=== PATIENT | female | born 1960 | race Caucasian/White ===

== ENCOUNTER 2017-10-24 07:39 | Observation (INO) | payer MEDICARE ==
[2017-10-24 08:23] LABS: Hemoglobin 15.2 g/dL (12.0-16.0); Mean Corpuscular HGB CONC 32.4 g/dL (32.0-36.0); Mean Corpuscular Hemoglobin 29.4 pg (27.0-31.0); Mean Corpuscular Volume 90.5 fl (81.0-99.0); RBC Distribution Width 12.7 % (11.5-14.5); Red Blood Cell (RBC) Count 5.16 mill/uL (4.20-5.40); White Blood Cell (WBC) Count 5.4 thou/uL (4.8-10.8)
[2017-10-24 08:31] LABS: ALT (SGPT) 17 U/L (8-55); AST (SGOT) 27 U/L (5-34); Albumin 4.5 g/dL (3.5-5.0); Alkaline Phosphatase 101 U/L (40-150); Anion Gap 17 mmol/L (10-20); BUN (Urea Nitrogen) 16 mg/dL (9.8-20.1); Bilirubin, Total 0.6 mg/dL (0.2-1.2); CK (CPK) 78 U/L (29-168); Calc. Creatinine Clearance 0 mL/min (70-130); Calcium 10.2 mg/dL (7.8-10.44); Carbon Dioxide 25 mmol/L (22-29); Chloride 98 mmol/L (98-107); Estimated GFR-MDRD 36; Globulin 3.5 g/dL (2.4-3.5); Glucose 117 mg/dL (70-105); Potassium 4.6 mmol/L (3.5-5.1); Sodium 135 mmol/L (136-145)
[2017-10-24 08:34] LABS: CKMB 0.8 ng/mL (0-6.6); Troponin I 0.031 ng/mL (< 0.028)
--- NOTE | 2017-10-24 08:34 | RAD ---
PA AND LATERAL VIEWS OF CHEST: HISTORY: Cough. FINDINGS: Comparison is made with the exam of 01/14/17. A tracheostomy tube is present. There is a subclavian Port-A-Cath with tip in the projection of the SVC. The heart size is normal. The lungs are expanded without focal areas of consolidation, pneumot horax, or pleural effusions. IMPRESSION: No acute process. POS: DEVIH
[2017-10-24 08:38] LABS: #Lymphocytes 0.5 thou/uL (1.20-3.40); #Monocytes 0.7 thou/uL (0.11-0.59); #Neutrophils 4.2 thou/uL (1.40-6.50); %Eosinophils 0.1 % (0.0-10.0); %Lymphocytes 8.8 % (21.0-51.0); %Neutrophils 78.2 % (42.0-75.0); Mean Platelet Volume 9.1 fL (7.4-10.4); PLT Morphology Comment Appears Decreased; Platelet Count 113 thou/uL (130-400)
[2017-10-24] MEDS ORDERED: Nitroglycerin 2% Ointment 1 INCH/1 GM Packet ONE ×2 (08:54→12:40)
[2017-10-24] MEDS ORDERED: Oseltamivir 75 MG CAP PO SCH (09:00)
[2017-10-24] MEDS ORDERED: Ondansetron ODT 4 MG TAB PO PRN (09:37)
[2017-10-24] MEDS ORDERED: Ondansetron HCl/PF 4 MG/2 ML Vial IVP PRN (09:37)
[2017-10-24] MEDS ORDERED: ALPRAZolam 0.25 MG TAB PER TUBE PRN (09:41)
[2017-10-24 11:30] LABS: Bilirubin Negative (Negative); Blood, Urine Trace (Negative); Clarity CLEAR (Clear); Glucose, Urine (Dipstick) Negative (Negative); Leukocyte Negative (Negative); Nitrite Negative (Negative); Protein, Urine (Dipstick) Trace mg/dL (Neg-Trace); Specific Gravity, Urine 1.016 (1.002-1.036); pH, Urine 6.5 (5.0-9.0)
[2017-10-24 11:32] LABS: Bacteria/HPF None Seen HPF (None Seen); Hyaline Casts/LPF 0-3 HYALINE CAST LPF (0-3 Hyaline); Squamous Epithelial 0-3 HPF (0-3); WBC/HPF 0-3 HPF (0-3)
[2017-10-24 12:05] LABS: Troponin I 0.033 ng/mL (< 0.028)
--- NOTE | 2017-10-24 12:16 | HP ---
CHIEF COMPLAINT: Generalized body pain and coughing. HISTORY OF PRESENT ILLNESS: This is a 57-year-old female patient who presented here with 2-3 days hi story of hacking and coughing with generalized body pain. Patient's had similar complaints a nd came to the ER yesterday and was discharged afterwards. Patient now presented because of deterior ating clinical status. On presentation to the ER, the patient tested positive to flu and with slight elevation in the cardiac enzyme. As a result of these findings, the decision has now been taken to admit this patient for further management. PAST MEDICAL HISTORY: Significant for history of squamous cell carcinoma status post chemotherapy, o rthostatic hypotension, labile hypertension, tobacco abuse, dyslipidemia, history of cervical carcino ma. MEDICATIONS: Reviewed as documented on [employer]. ALLERGIES: MORPHINE. FAMILY HISTORY: Significant for brain cancer. SOCIAL HISTORY: The patient is , living with the . Significant for tobacco use. Jose es alcohol or illicit drug use. REVIEW OF SYSTEMS: As documented in the body of the history. All the other systems were reviewed an d were found not to be significantly related to the presenting illness. LABORATORY INVESTIGATION: Showed a platelet count of 113,000. Chemistry showed a sodium 135, creati nine 1.48, troponin of 0.31. PHYSICAL EXAMINATION: GENERAL: The patient was found to be somewhat dry, looks a little bit older than stated age, hemodyn amically stable, afebrile. VITAL SIGNS: Significant for blood pressure 124/76 with a pulse of 111, temperature 98.5, respirator y rate 22, O2 sat 94% on room air. HEENT: Unremarkable. CARDIOVASCULAR SYSTEM: First and second heart sounds were heard. RESPIRATORY SYSTEM: Clear to auscultation. DIGESTIVE SYSTEM: Revealed a benign abdomen. EXTREMITIES: No peripheral edema. SKIN: Showed a very dry skin. IMPRESSION: 1. Influenza type A positive/fluid. 2. Tobacco abuse. 3. Elevated cardiac enzymes/troponin, query cause, possibly demand ischemia. 4. Respiratory distress in the context of the problems listed above. PLAN: 1. The patient has been admitted to rule out acute coronary syndrome. 2. Tamiflu initiated to treat the flu. 3. Gentle rehydration. 4. Further management to be dependent on the clinical course.
[2017-10-24] MEDS: Dextrose 5 % And 0.9 % NaCl 1,000 ML IV SCH (14:47)
[2017-10-24] MEDS: Nicotine 21 MG PATCH TD SCH (14:48)
[2017-10-24 15:25] VITALS: BMI 17.8
[2017-10-24] MEDS: Acetaminophen 325 MG TAB PO PRN (16:14)
[2017-10-24] MEDS: Metoprolol Tartrate 25 MG TAB PO SCH (20:42)
[2017-10-24] MEDS: Oseltamivir 6 MG/ML ORAL SUSP PO SCH (20:42)
[2017-10-24] MEDS ORDERED: Zolpidem Tartrate 5 MG TAB PO SCH (20:45)
[2017-10-24] MEDS ORDERED: Atorvastatin Calcium 40 MG TAB PO SCH (21:00)
[2017-10-24] MEDS ORDERED: Montelukast Sodium 10 mg Tablet PO SCH (21:00)
[2017-10-24] MEDS ORDERED: Famotidine 20 MG TAB PO SCH (21:00)
[2017-10-25] MEDS: Dextrose 5 % And 0.9 % NaCl 1,000 ML IV SCH (00:08)
[2017-10-25] MEDS: Acetaminophen 325 MG TAB PO PRN (00:09)
[2017-10-25 05:15] LABS: #Lymphocytes 0.9 thou/uL (1.20-3.40); #Monocytes 0.8 thou/uL (0.11-0.59); #Neutrophils 3.9 thou/uL (1.40-6.50); %Basophils 0.3 % (0.0-1.0); %Eosinophils 0.1 % (0.0-10.0); %Lymphocytes 16.2 % (21.0-51.0); %Monocytes 14.1 % (0.0-10.0); %Neutrophils 69.3 % (42.0-75.0); Hemoglobin 12.4 g/dL (12.0-16.0); Mean Corpuscular HGB CONC 33.1 g/dL (32.0-36.0); Mean Corpuscular Volume 90.6 fl (81.0-99.0); Platelet Count 89 thou/uL (130-400); RBC Distribution Width 12.8 % (11.5-14.5); Red Blood Cell (RBC) Count 4.15 mill/uL (4.20-5.40); White Blood Cell (WBC) Count 5.7 thou/uL (4.8-10.8)
[2017-10-25 05:24] LABS: Anion Gap 10 mmol/L (10-20); BUN (Urea Nitrogen) 20 mg/dL (9.8-20.1); Calc. Creatinine Clearance 45 mL/min (70-130); Calcium 8.8 mg/dL (7.8-10.44); Carbon Dioxide 24 mmol/L (22-29); Chloride 101 mmol/L (98-107); Estimated GFR-MDRD 55; Glucose 127 mg/dL (70-105); Potassium 3.8 mmol/L (3.5-5.1); Sodium 131 mmol/L (136-145)
--- NOTE | 2017-10-25 07:26 | PDOC.PN ---
- Subjective Encounter Start Date: 10/25/17 Encounter Start Time: 08:00 Subjective: Cough much improved. No SOB this AM. Ambulating well. - Objective MAR Reviewed: Yes Vital Signs & Weight: Vital Signs (12 hours) Temp Pulse Resp BP Pulse Ox 10/25/17 04:11 96 10/25/17 00:04 103.0 F H 86 20 165/78 H 91 L 10/24/17 23:25 97 10/24/17 19:36 98 10/24/17 19:32 95 16 98 Weight Weight 107 lb I&O: 10/24/17 10/25/17 10/26/17 06:59 06:59 06:59 Intake Total 2200 Output Total 650 Balance 1550 Result Diagrams: 10/25/17 04:50 10/25/17 04:50 Phys Exam - Physical Examination Constitutional: NAD HEENT: moist MMs Trach in place, capped Respiratory: no wheezing, no rales, no rhonchi, clear to auscultation bilateral Cardiovascular: RRR Gastrointestinal: soft, positive bowel sounds PEG tube in place Musculoskeletal: no edema Neurological: non-focal, moves all 4 limbs Psychiatric: normal affect, A&O x 3 Dx/Plan (1) Influenza A Code(s): J10.1 - FLU DUE TO OTH IDENT INFLUENZA VIRUS W OTH RESP MANIFEST Status: Acute Comment: Patient still fevering to 103 overnight but feeling much better this morning. (2) Elevated troponin Code(s): R74.8 - ABNORMAL LEVELS OF OTHER SERUM ENZYMES Status: Acute Comment: Likely demand ischemia, known CAD and old NH, but neg stress in 12/2016 (3) Vocal cord dysfunction Code(s): J38.3 - OTHER DISEASES OF VOCAL CORDS Status: Chronic Comment: s/p tracheostomy and PEG last admission (4) CAD (coronary artery disease) Code(s): I25.10 - ATHSCL HEART DISEASE OF [place] CORONARY ARTERY W/O ANG PCTRS Status: Chronic Comment: 2 previous stents (5) Hypertension, uncontrolled Code(s): I10 - ESSENTIAL (PRIMARY) HYPERTENSION Status: Chronic (6) Orthostasis Code(s): I95.1 - ORTHOSTATIC HYPOTENSION Status: Chronic Comment: Significant persistent orthostatic drop with sitting or standing. - Plan cont current plan of care, continue antibiotics, DVT proph w/lovenox Patient feeling much better this AM. If continues doing well today and -: able to ambulate well without symptoms can d/c in the afternoon. * . - Discharge Day Encounter end time: 08:30
[2017-10-25] MEDS: Metoprolol Tartrate 25 MG TAB PO SCH (08:43)
[2017-10-25] MEDS: Oseltamivir 6 MG/ML ORAL SUSP PO SCH (08:58)
[2017-10-25] MEDS ORDERED: Amlodipine 5 MG TAB PO SCH (09:00)
[2017-10-25] MEDS ORDERED: Aspirin 325 MG TAB PO SCH (09:00)
[2017-10-25] MEDS ORDERED: Enoxaparin Sodium 40 MG/0.4 ML SYRINGE SC SCH (09:00)
[2017-10-25 12:34] VITALS: BP 101/59; TEMP 98
[2017-10-25] MEDS: Nicotine 21 MG PATCH TD SCH (12:34)
--- NOTE | 2017-10-25 22:22 | DIS ---
PRIMARY CARE PHYSICIAN: Bhupinder Taylor MD ADMISSION DIAGNOSES: 1. Influenza type A. 2. Elevated cardiac enzymes, troponin, possible demand ischemia. 3. Respiratory distress in the context of influenza. 4. Tobacco abuse. DISCHARGE DIAGNOSES: 1. Influenza A. 2. Indeterminate troponin, likely demand ischemia. 3. Coronary artery disease. 4. Hypertension. 5. Vocal cord dysfunction, status post tracheostomy and PEG on last admission. 6. Chronic orthostasis. PROCEDURES: None. CONSULTATIONS: None. SUMMARY OF HOSPITAL COURSE: This is a 57-year-old white female who was in the hospital earlier in with vocal cord dysfunction, had a trach and a PEG tube placed, also had some recurrent orthos tasis, high blood pressure when she is lying down, orthostasis whenever she stands up. She has been doing well at home until about 2-3 days before admission when she developed hacking and coughing and generalized body pain, she came to the ER. There was diagnosed with influenza A, but also noted to h ave indeterminate troponins. Given her significant medical problems, she was put in observation in [facility]. The patient did well overnight. She was started on Tamiflu, has fever controlled and w as given fluids. She had stable vital signs at discharge due to fever overnight to 103 that has been resolved and was down the rest of the day. She had decrease in her cough and was feeling well and a mbulating well with good strength and is being discharged home. Her troponins were mildly indetermin ate. This is likely due to her known coronary artery disease; however, she had a stress test done [facility] the last year which showed an old ID, but no inducible ischemia. DISCHARGE MANAGEMENT: Discharged to home. ACTIVITY: As tolerated. DIET: Healthy heart diet. FOLLOWUP: Follow up with primary care physician in 1-2 weeks. MEDICATIONS: The patient is to resume all her home medications plus Tamiflu 75 mg twice a day for 7 more tablets for a total course of 10 tablets.
== END 2017-10-25 14:51 | disposition home or self-care (01) ==
LOC: ERS 07:39 → 2SW 13:17
PROVIDERS: ADMIT Internal Medicine Nephrology; ATTEND Internal Medicine Nephrology
DX: J10.1 Influenza due to other identified influenza virus with other respiratory manifestations (principal); I25.10 Atherosclerotic heart disease of native coronary artery without angina pectoris; R74.8 Abnormal levels of other serum enzymes; I10 Essential (primary) hypertension; I95.1 Orthostatic hypotension; F17.200 Nicotine dependence, unspecified, uncomplicated; E78.5 Hyperlipidemia, unspecified; Z93.0 Tracheostomy status; Z93.1 Gastrostomy status; Z79.02 Long term (current) use of antithrombotics/antiplatelets; Z79.899 Other long term (current) drug therapy; Z88.5 Allergy status to narcotic agent; Z85.828 Personal history of other malignant neoplasm of skin; Z92.21 Personal history of antineoplastic chemotherapy; Z85.41 Personal history of malignant neoplasm of cervix uteri
CPT/HCPCS: 71020; 80048; 80053; 82550; 82553; 84484 ×2; 85025 ×2; 87804 ×2; 93005; 94640 ×3; 94760 ×2; 96360; 96361 ×2; 99285; G0378; 36415; 81003; 81015; J1650; J7620

== ENCOUNTER 2018-04-28 01:11 | Emergency (ER) | payer MEDICARE ==
--- NOTE | 2018-04-28 08:33 | RAD ---
LEFT RIBS 3 VIEWS CHEST 1 VIEW: Date: 04/28/18 HISTORY: Left chest wall pain. COMPARISON: 10/24/17. FINDINGS: Cardiac silhouette and pulmonary vasculature are unremarkable. Mediastinum is midline with aortic donaldo cification. Right subclavian MediPort and tracheostomy appliance are unchanged in position. Lungs rem ain hyperinflated. No lobar consolidation. No displaced rib fracture or pneumothorax visible. IMPRESSION: 1. COPD. 2. Atherosclerosis. 3. Stable radiographic appearance of the chest. POS: DEVI
== END 2018-04-28 02:15 | disposition home or self-care (01) ==
LOC: ERS 01:11
DX: R07.89 Other chest pain (principal); I10 Essential (primary) hypertension; J44.9 Chronic obstructive pulmonary disease, unspecified; F17.210 Nicotine dependence, cigarettes, uncomplicated; Z79.899 Other long term (current) drug therapy; Z87.891 Personal history of nicotine dependence

== ENCOUNTER 2018-05-31 20:04 | Emergency (ER) | payer MEDICARE ==
[2018-05-31 20:41] LABS: #Basophils 0.1 thou/uL (0.0-0.2); #Eosinphils 0.1 thou/uL (0.0-0.7); #Lymphocytes 1.7 thou/uL (1.20-3.40); #Neutrophils 4.8 thou/uL (1.40-6.50); %Basophils 0.8 % (0.0-1.0); %Eosinophils 1.4 % (0.0-10.0); %Lymphocytes 22.1 % (21.0-51.0); %Monocytes 12.6 % (0.0-10.0); Hemoglobin 14.2 g/dL (12.0-16.0); Mean Corpuscular HGB CONC 34.4 g/dL (32.0-36.0); Mean Corpuscular Hemoglobin 30.9 pg (27.0-31.0); Mean Corpuscular Volume 89.8 fL (78.0-98.0); Mean Platelet Volume 7.8 fL (7.4-10.4); Platelet Count 191 thou/uL (130-400); RBC Distribution Width 13.2 % (11.5-14.5); Red Blood Cell (RBC) Count 4.61 mill/uL (4.20-5.40); White Blood Cell (WBC) Count 7.6 thou/uL (4.8-10.8)
[2018-05-31 21:07] LABS: CKMB 1.6 ng/mL (0-6.6); Troponin I Less than 0.010 ng/mL (< 0.028)
[2018-05-31 21:10] LABS: ALT (SGPT) 16 U/L (8-55); AST (SGOT) 31 U/L (5-34); Albumin 4.2 g/dL (3.5-5.0); Alkaline Phosphatase 112 U/L (40-150); Anion Gap 16 mmol/L (10-20); BUN (Urea Nitrogen) 21 mg/dL (9.8-20.1); Bilirubin, Total 0.6 mg/dL (0.2-1.2); Calc. Creatinine Clearance 0 mL/min (70-130); Calcium 9.6 mg/dL (7.8-10.44); Carbon Dioxide 22 mmol/L (22-29); Chloride 107 mmol/L (98-107); Estimated GFR-MDRD 52; Globulin 4.1 g/dL (2.4-3.5); Glucose 98 mg/dL (70-105); Potassium 5.1 mmol/L (3.5-5.1); Protein, Total 8.3 g/dL (6.0-8.3); Sodium 140 mmol/L (136-145)
--- NOTE | 2018-05-31 21:54 | RAD ---
CHEST ONE VIEW: 05/31/18 HISTORY: Dyspnea. COMPARISON: 01/14/17. FINDINGS: The cardiac silhouette and pulmonary vasculature are unremarkable. Lungs are well inflated. Tracheost eugene appliance and right subclavian Mediport are in place. Mediastinum is midline with aortic calcific ation. No lobar consolidation or evidence of pneumothorax. IMPRESSION: No active cardiopulmonary abnormalities are demonstrated. POS: BST
[2018-05-31] MEDS ORDERED: cloNIDine 0.1 MG TAB ONE (22:48)
[2018-05-31] MEDS ORDERED: Diazepam 5 MG TAB ONE (23:59)
[2018-06-01] MEDS ORDERED: predniSONE 20 MG TAB ONE ×2 (00:01)
--- NOTE | 2018-06-11 12:10 | EKG ---
Test Reason : Blood Pressure : / mmHG Vent. Rate : 077 BPM Atrial Rate : 077 BPM P-R Int : 134 ms QRS Dur : 090 ms QT Int : 386 ms P-R-T Axes : 080 047 083 degrees QTc Int : 436 ms Normal sinus rhythm Possible Left atrial enlargement Nonspecific T wave abnormality Abnormal ECG Confirmed by CHARLIE RAZA ([id number]), multimedia editor MARICEL FUNES ([id number]) on 06/11/2018 12:10:12 PM Referred By: Confirmed By:CHARLIE RAZA
== END 2018-06-01 00:36 | disposition home or self-care (01) ==
LOC: ERS 20:04
DX: Z43.0 Encounter for attention to tracheostomy (principal); F41.9 Anxiety disorder, unspecified; I10 Essential (primary) hypertension; I25.2 Old myocardial infarction; F17.210 Nicotine dependence, cigarettes, uncomplicated
CPT/HCPCS: 71045; 80053; 82553; 83880; 84484; 85025; 93005; J7506

== ENCOUNTER 2018-12-14 09:47 | Outpatient (CLI) | payer MEDICARE, MEDICAID | END 2018-12-14 09:48 | disposition home or self-care (01) | PROVIDERS: ATTEND Internal Medicine | DX: R13.10 Dysphagia, unspecified (principal); R63.3 Feeding difficulties | CPT/HCPCS: 74230 ==

== ENCOUNTER 2019-01-04 12:25 | Outpatient (CLI) | payer MEDICARE, MEDICAID ==
--- NOTE | 2019-01-04 13:16 | RAD ---
RIGHT THUMB 3 VIEWS: HISTORY: Osteoarthritis of right thumb, right thumb pain. FINDINGS: Mild degenerative changes are present. No fracture, dislocation, or bony destruction is identified. POS: [facility]
== END 2019-01-04 12:26 | disposition home or self-care (01) ==
LOC: BICRAD 12:25
PROVIDERS: ATTEND Internal Medicine
DX: M19.041 Primary osteoarthritis, right hand (principal)

== ENCOUNTER 2019-06-06 09:18 | Outpatient (CLI) | payer MEDICARE, MEDICAID ==
--- NOTE | 2019-06-06 09:31 | RAD ---
EXAM: Chest 2 views: HISTORY: Uncontrolled hypertension COMPARISON: 05/31/2019 FINDINGS: There is a normal-sized cardiomediastinal silhouette. The Mediport is unchanged in position. The tra cheostomy is unchanged in position. There is no evidence of consolidation, mass, or pleural effusion. The bones are unremarkable. IMPRESSION: No evidence of acute cardiopulmonary disease
== END 2019-06-06 09:19 | disposition home or self-care (01) ==
LOC: BICRAD 09:18
PROVIDERS: ATTEND Internal Medicine
DX: I10 Essential (primary) hypertension (principal)
CPT/HCPCS: 71046

== ENCOUNTER 2019-06-27 12:34 | Emergency (ER) | payer MEDICARE, MEDICAID | END 2019-06-27 13:35 | disposition home or self-care (01) | LOC: ERS 12:34 | DX: H65.192 Other acute nonsuppurative otitis media, left ear (principal); H61.22 Impacted cerumen, left ear; I10 Essential (primary) hypertension; I25.2 Old myocardial infarction; J44.9 Chronic obstructive pulmonary disease, unspecified; K21.9 Gastro-esophageal reflux disease without esophagitis; F41.9 Anxiety disorder, unspecified; Z87.891 Personal history of nicotine dependence; Z79.899 Other long term (current) drug therapy | CPT/HCPCS: 69210 ==

== ENCOUNTER 2019-10-13 13:21 | Day surgery (SDC) | payer MEDICARE, MEDICAID ==
[~2019-10-13 13:21] MED LIST: PROPOFOL 200 MG/20 ML VIAL ONE
--- NOTE | 2019-10-14 00:42 | OP ---
DATE OF PROCEDURE: 10/13/2019 PREOPERATIVE DIAGNOSES: 1. Dysfunctional PEG tube with clog. 2. Inability for the PEG tube to be removed in the office secondary to patient's pain. ANESTHESIA: TIVA. POSTPROCEDURE DIAGNOSES: 1. Normal EGD. 2. PEG tube removed by pulling it through the abdominal wall and stomach wall with no complication. New 18-British PEG with 20 mL balloon placed at the original PEG tube tract with endoscopic guidance to confirm placement. DESCRIPTION OF PROCEDURE: The patient was informed of the risks, benefits, and possible complications of endoscopy including perforation, reaction to medication, aspiration. Informed consent was obtained. The patient was brought to the endoscopy suite, where she was sedated in gradual fashion. Once she was comfortable, a bite-block was placed inside the orifice. The endoscope was advanced to the esophagus, stomach, and second and third portion of duodenum and slowly removed. There was good visualization of the mucosa. The old PEG tube was identified in the stomach and appeared to be in proper location. It was then grasped at the anterior abdominal wall and sharply retracted through the abdominal wall. There was no evidence of trauma or bleeding. A new PEG tube was placed through the old tract under endoscopic guidance and it was inflated. The scope was then removed. The patient tolerated the procedure well with no complications. Job ID: [id number]
== END 2019-10-13 18:45 | disposition home or self-care (01) ==
LOC: SDC 13:21
PROVIDERS: ATTEND Internal Medicine Gastroenterology
PROC: 0DH63UZ Insertion of Feeding Device into Stomach, Percutaneous Approach (ICD-10-PCS; principal; 2019-10-13)
DX: K94.23 Gastrostomy malfunction (principal); R13.10 Dysphagia, unspecified; E78.00 Pure hypercholesterolemia, unspecified; Z79.02 Long term (current) use of antithrombotics/antiplatelets; Z79.899 Other long term (current) drug therapy; Z88.5 Allergy status to narcotic agent
CPT/HCPCS: J2704

== ENCOUNTER 2020-03-25 08:53 | Outpatient (CLI) | payer MEDICARE, MEDICAID, OTHER ==
[2020-03-25 15:42] LABS: Hemoglobin 14.5 g/dL (12.0-16.0); Mean Corpuscular HGB CONC 32.7 g/dL (32.0-36.0); Mean Corpuscular Hemoglobin 30.5 pg (27.0-31.0); Mean Corpuscular Volume 93.2 fL (78.0-98.0); Mean Platelet Volume 7.7 fL (7.4-10.4); Platelet Count 215 thou/uL (130-400); RBC Distribution Width 12.6 % (11.5-14.5); Red Blood Cell (RBC) Count 4.75 mill/uL (4.20-5.40); White Blood Cell (WBC) Count 5.3 thou/uL (4.8-10.8)
[2020-03-25 16:20] LABS: Anion Gap 12 mmol/L (10-20); BUN (Urea Nitrogen) 9 mg/dL (9.8-20.1); Calc. Creatinine Clearance 0 mL/min (70-130); Calcium 9.5 mg/dL (7.8-10.44); Carbon Dioxide 27 mmol/L (23-31); Chloride 100 mmol/L (98-107); Estimated GFR-MDRD 55; Glucose 86 mg/dL (80-115); Potassium 4.2 mmol/L (3.5-5.1); Sodium 135 mmol/L (136-145)
[2020-03-26 11:10] LABS: SARS-CoV-2 MS2 Positive; SARS-CoV-2 N Gene Negative; SARS-CoV-2 S Gene Negative; SARS-CoV-2 orf1ab Negative
== END 2020-03-25 08:54 | disposition home or self-care (01) ==
LOC: LABBT 08:53
PROVIDERS: ATTEND Otolaryngology Plastic Surgery within the Head & Neck
DX: Z01.818 Encounter for other preprocedural examination (principal); J38.00 Paralysis of vocal cords and larynx, unspecified; L98.9 Disorder of the skin and subcutaneous tissue, unspecified; C44.91 Basal cell carcinoma of skin, unspecified; Z85.21 Personal history of malignant neoplasm of larynx; Z93.0 Tracheostomy status; Z72.0 Tobacco use; Z11.59 Encounter for screening for other viral diseases
CPT/HCPCS: 80048; 85027; 93005; U0003; 87635; 93010

== ENCOUNTER 2020-03-27 11:24 | Day surgery (SDC) | payer MEDICARE, MEDICAID ==
[2020-03-25 14:52] VITALS: BMI 19.1
[~2020-03-27 11:24] MED LIST changes: +Lidocaine 1% PF 5 ML VIAL ONE; -PROPOFOL 200 MG/20 ML VIAL ONE
[2020-03-27] MEDS ORDERED: Lidocaine 1% w/Epinephrine 1:100K 20 ML VIAL ONE (14:31)
[2020-03-27] MEDS ORDERED: Bacitracin Zinc Ointment 30 gm TUBE ONE (14:31)
[2020-03-27] MEDS ORDERED: Fentanyl 100 MCG/2 ML VIAL ONE (14:38)
[2020-03-27] MEDS ORDERED: Propofol 500 MG/50 ML VIAL ONE (14:38)
--- NOTE | 2020-03-28 09:53 | OP ---
DATE OF PROCEDURE: 03/27/2020 PREOPERATIVE DIAGNOSIS: Left face basal cell carcinoma 3.0 sq cm. POSTOPERATIVE DIAGNOSIS: Left face basal cell carcinoma 3.0 sq cm. PROCEDURES: Wide local excision of basal cell carcinoma, left cheek and nose 3 sq cm with advancement flap 6 sq cm. ESTIMATED BLOOD LOSS: Less than 10 mL. COMPLICATIONS: None. ANESTHESIA: TIVA. DESCRIPTION OF PROCEDURE: The patient was taken to the operating room, placed supine on the table. IV sedation and anesthesia were obtained by the anesthesia staff. The face was then prepped and draped in standard surgical fashion. The lesion which was just adjacent to the left nasal bridge and extending onto the left cheek and nasal-alar crease was excised using a 15 blade keeping a 5 to 8 mm margin. Frozen section analysis confirmed clear margins except for a positive lateral margin. Therefore, another 5 mm sample was taken from the lateral edge of the resection area and was noted to be clear of any residual tissue. Following this, the skin was undermined overlying the cheek and area and nasal-alar crease. The flap was then advanced to cover the defect involving the left nasal bridge and left cheek area. The flap was secured using Monocryl stitches for the subcuticular layer and chromic gut stitches for the skin. The patient tolerated the procedure well. Job ID: [id number]
== END 2020-03-27 17:15 | disposition home or self-care (01) ==
LOC: SDC 11:24
PROVIDERS: ATTEND Otolaryngology Plastic Surgery within the Head & Neck
PROC: 0HB1XZZ Excision of Face Skin, External Approach (ICD-10-PCS; principal; 2020-03-27)
PROC: 0HX1XZZ Transfer Face Skin, External Approach (ICD-10-PCS; 2020-03-27)
DX: C44.311 Basal cell carcinoma of skin of nose (principal); J38.01 Paralysis of vocal cords and larynx, unilateral; I25.10 Atherosclerotic heart disease of native coronary artery without angina pectoris; E11.9 Type 2 diabetes mellitus without complications; F41.9 Anxiety disorder, unspecified; I10 Essential (primary) hypertension; E78.00 Pure hypercholesterolemia, unspecified; J44.9 Chronic obstructive pulmonary disease, unspecified; F17.210 Nicotine dependence, cigarettes, uncomplicated; Z85.21 Personal history of malignant neoplasm of larynx; Z79.02 Long term (current) use of antithrombotics/antiplatelets; Z79.899 Other long term (current) drug therapy; Z88.5 Allergy status to narcotic agent; Z93.0 Tracheostomy status; Z95.5 Presence of coronary angioplasty implant and graft
CPT/HCPCS: 88305; 88331; J2001; J2704; J3010

== ENCOUNTER 2020-07-26 15:03 | Outpatient (CLI) | payer MEDICARE, MEDICAID ==
--- NOTE | 2020-07-26 16:16 | CT ---
EXAM: CT Pulmonary Lung Scan PROVIDED CLINICAL HISTORY: Tobacco abuse. 1 pack per day history of smoking for 46 years. History of basal cell carcinoma of fac e. Tracheostomy. COMPARISON: CT thorax on 03/31/2010 FINDINGS: There are scattered emphysematous changes seen throughout the lungs bilaterally. There are scattered areas of linear scarring seen within the lungs bilaterally. There are patchy parenchymal irregular densities seen in the inferior aspect of the right upper lobe with a nodular parenchymal density right lower lobe which measures 15 mm x 9 mm. Just inferior to this and laterally is a slightly irregular nodular density as well. A small 6 mm pulmonary nodule is seen within the right lower lobe (image 104, series 3) with adjacent linear densities. There is irregular patchy parenchymal density seen in the lateral aspect of the left upper lobe adjacent to th e major fissure with area of consolidation seen in the lingula. A few irregular linear patchy densities are seen in the left lower lobe. Few minimal groundglass patchy densities are seen in the r ight upper lobe. These findings may be attributable to infectious or inflammatory process and areas of chronic lung change, but close interval follow-up is recommended. No pleural effusion is seen. A tiny nodular density is seen within the right lateral aspect of the trachea which is thought to mos t likely related to secretions. Vascular calcifications are seen in the thoracic aorta and involving the coronary arteries. A right subclavian Mediport catheter is noted in place with tip in the proximal SVC. Tracheostomy dev ice is in place. Lack of intravenous contrast limits evaluation of mediastinal structures and vasculature. No obvious enlarged lymph node is appreciated. Small hiatal hernia is present. Gastrostomy tube is in place in the body of the stomach. Vascular calcifications are seen in the visualized upper abdomen. Mild degenerative changes are seen in the spine. No suspicious lytic or sclerotic osseous lesion is i dentified. IMPRESSION: 1. Lung RADS category 4B, suspicious nodular densities right lung. Findings may potentially be relate d to an infectious or inflammatory process, but given nodular appearance, short interval follow-up CT thorax in 3 months is recommended. Correlation for infectious or inflammatory process is also [employer] watts. 2. Evidence of COPD and mild chronic lung changes. 3. Vascular calcifications.
== END 2020-07-26 15:04 | disposition home or self-care (01) ==
LOC: BICCT 15:03
PROVIDERS: ATTEND Family Medicine
DX: Z12.2 Encounter for screening for malignant neoplasm of respiratory organs (principal); F17.210 Nicotine dependence, cigarettes, uncomplicated; R91.8 Other nonspecific abnormal finding of lung field; J44.9 Chronic obstructive pulmonary disease, unspecified; I70.90 Unspecified atherosclerosis
CPT/HCPCS: G0297

== ENCOUNTER 2020-11-28 13:03 | Outpatient (CLI) | payer MEDICARE, MEDICAID ==
--- NOTE | 2020-11-28 16:58 | CT ---
CT PULMONARY LUNG SCAN: History: Patient is a current smoker, one-pack per day, for 46 years. Comparison: 07-26-2020 FINDINGS: There are radiographic changes of the central lobular emphysema. Peripheral blood formation is noted. On the previous examination, there is some ill-defined nodular of parenchymal densities within the an terior segment of the right upper lobe. Most of these changes have largely resolved. There is still a focus of more linear change or medially which appears to represent scarring. There has been a simila r significant improvement to the right lower lobe parenchymal changes, also largely resolving as comp ared to that previous exam. Changes are all felt to be related to pneumonitis type change. The more p late-like linear parenchymal changes in the lingula has also improved. Tracheostomy tube is in place. No significant mediastinal adenopathy appreciated on this noncontrast study. Coronary calcifications are present. Visualized liver parenchyma shows no focal findings. Atherosclerotic changes of the aorta and renal a rteries are present. IMPRESSION: Lung RAD category 1 - negative. The nodular parenchymal changes in both lung lord have essentially resolved, probably related to previous pneumonitis change. Residual changes in anterior segment of th e right upper lobe and lingula probably just related to scarring. 2. Lungs RADS category S - this is given for the presence of emphysematous change with some borderlin e changes of honeycombing. Also, coronary calcifications noted. POS: JOVANNY
== END 2020-11-28 13:04 | disposition home or self-care (01) ==
LOC: BICCT 13:03
PROVIDERS: ATTEND Family Medicine
DX: Z12.2 Encounter for screening for malignant neoplasm of respiratory organs (principal); F17.210 Nicotine dependence, cigarettes, uncomplicated; R91.8 Other nonspecific abnormal finding of lung field; I25.10 Atherosclerotic heart disease of native coronary artery without angina pectoris
CPT/HCPCS: G0297

== ENCOUNTER 2021-02-07 10:04 | Outpatient (CLI) | payer MEDICARE, MEDICAID | END 2021-02-07 10:05 | disposition home or self-care (01) | LOC: BICMAMMO 10:04 | PROVIDERS: ATTEND Family Medicine | DX: Z12.31 Encounter for screening mammogram for malignant neoplasm of breast (principal); Z13.820 Encounter for screening for osteoporosis; M85.89 Other specified disorders of bone density and structure, multiple sites; Z85.818 Personal history of malignant neoplasm of other sites of lip, oral cavity, and pharynx | CPT/HCPCS: 77063; 77067; 77080 ==

== ENCOUNTER 2021-03-04 15:45 | Outpatient (CLI) | payer MEDICARE, MEDICAID ==
[~2021-03-04 15:45] MED LIST changes: +Iopamidol 370 76% 100 ML VIAL ONE; -Lidocaine 1% PF 5 ML VIAL ONE
== END 2021-03-04 15:46 | disposition home or self-care (01) ==
LOC: BICCT 15:45
PROVIDERS: ATTEND Physician Assistant Medical
DX: Z43.1 Encounter for attention to gastrostomy (principal); R10.10 Upper abdominal pain, unspecified; R63.4 Abnormal weight loss
CPT/HCPCS: 74177; Q9967

== ENCOUNTER 2021-06-11 13:33 | Outpatient (CLI) | payer MEDICARE, MEDICAID | END 2021-06-11 13:34 | disposition home or self-care (01) | LOC: BICRAD 13:33 | PROVIDERS: ATTEND Internal Medicine Critical Care Medicine | DX: R06.00 Dyspnea, unspecified (principal); J98.4 Other disorders of lung | CPT/HCPCS: 71046 ==

== ENCOUNTER 2021-12-12 13:28 | Outpatient (CLI) | payer MEDICARE, MEDICAID ==
[2021-12-12 15:09] LABS: Hemoglobin 12.4 g/dL (12.0-15.5); Mean Corpuscular HGB CONC 31.6 g/dL (32.0-36.0); Mean Corpuscular Hemoglobin 29.2 pg (27.0-33.0); Mean Corpuscular Volume 92.5 fl (81.6-98.3); Mean Platelet Volume 11.2 fl (7.4-10.4); Platelet Count 213 10x3/uL (150-450); RBC Distribution Width 14.3 % (11.5-14.5); Red Blood Cell (RBC) Count 4.25 10x6/uL (3.90-5.03); White Blood Cell (WBC) Count 5.8 10x3/uL (3.5-10.5)
[2021-12-12 15:24] LABS: Anion Gap 12 mmol/L (10-20); BUN (Urea Nitrogen) 11 mg/dL (9.8-20.1); Calc. Creatinine Clearance 0 mL/min (70-130); Calcium 8.6 mg/dL (7.8-10.44); Carbon Dioxide 28 mmol/L (23-31); Chloride 102 mmol/L (98-107); Glucose 75 mg/dL (80-115); Potassium 4.5 mmol/L (3.5-5.1); Sodium 137 mmol/L (136-145)
[2021-12-13 00:50] LABS: SARS-CoV-2 PCR by NAA Not Detected (NotDetected)
== END 2021-12-12 13:29 | disposition home or self-care (01) ==
LOC: LABBT 13:28
PROVIDERS: ATTEND Orthopaedic Surgery
DX: Z01.818 Encounter for other preprocedural examination (principal); K14.8 Other diseases of tongue; Z85.21 Personal history of malignant neoplasm of larynx; Z20.822 Contact with and (suspected) exposure to COVID-19
CPT/HCPCS: 80048; 85027; 93005; U0003; U0005; 93010

== ENCOUNTER 2022-02-17 08:25 | Outpatient (CLI) | payer MEDICARE, MEDICAID ==
[2022-02-17] MEDS ORDERED: Iopamidol-370 76% 500 ML 1 ML ONE (09:45)
== END 2022-02-17 08:26 | disposition home or self-care (01) ==
LOC: BICCT 08:25
PROVIDERS: ATTEND Otolaryngology
DX: C02.9 Malignant neoplasm of tongue, unspecified (principal); J34.1 Cyst and mucocele of nose and nasal sinus; J38.3 Other diseases of vocal cords; Z98.890 Other specified postprocedural states; Z92.3 Personal history of irradiation
CPT/HCPCS: 70491; 82565; Q9967

== ENCOUNTER 2022-05-13 15:40 | Outpatient (CLI) | payer MEDICAID | END 2022-05-13 15:41 | disposition home or self-care (01) | LOC: LABBT 15:40 | PROVIDERS: ATTEND Family Medicine | DX: Z20.822 Contact with and (suspected) exposure to COVID-19 (principal) | CPT/HCPCS: 87811 ==

== ENCOUNTER 2022-05-14 13:44 | Outpatient (CLI) | payer MEDICARE, MEDICAID | END 2022-05-14 13:45 | disposition home or self-care (01) | LOC: RAD 13:44 | PROVIDERS: ATTEND Otolaryngology | DX: R13.12 Dysphagia, oropharyngeal phase (principal) | CPT/HCPCS: 74230 ==

== ENCOUNTER 2022-08-27 09:37 | Emergency (ER) | payer MEDICARE, MEDICAID, OTHER ==
[2022-08-27] MEDS ORDERED: Lidocaine 4% Cream 5 GM TUBE w/ Tegaderm ONE (11:29)
[2022-08-27] MEDS ORDERED: GASTROGRAFIN 30 ML BOT ONE (12:43)
== END 2022-08-27 13:10 | disposition home or self-care (01) ==
LOC: ERS 09:37
DX: K94.23 Gastrostomy malfunction (principal); J44.9 Chronic obstructive pulmonary disease, unspecified; K21.9 Gastro-esophageal reflux disease without esophagitis; Z79.899 Other long term (current) drug therapy; Z87.891 Personal history of nicotine dependence
CPT/HCPCS: 74018; Q9963

== ENCOUNTER 2022-10-27 07:49 | Day surgery (SDC) | payer MEDICARE, MEDICAID ==
[2022-10-23 10:17] VITALS: BMI 20.2
[2022-10-27] MEDS ORDERED: Ondansetron PF 4 MG/2 ML Vial ONE (09:30)
[2022-10-27] MEDS ORDERED: PROPOFOL 200 MG/20 ML VIAL ONE (09:49)
== END 2022-10-27 11:35 | disposition home or self-care (01) ==
LOC: SDC 07:49
PROVIDERS: ATTEND Internal Medicine Gastroenterology
PROC: 0DW68UZ Revision of Feeding Device in Stomach, Via Natural or Artificial Opening Endoscopic (ICD-10-PCS; principal; 2022-10-27)
PROC: 0DJD8ZZ Inspection of Lower Intestinal Tract, Via Natural or Artificial Opening Endoscopic (ICD-10-PCS; 2022-10-27)
DX: K94.29 Other complications of gastrostomy (principal); K63.3 Ulcer of intestine; D50.9 Iron deficiency anemia, unspecified; R10.13 Epigastric pain; K59.09 Other constipation; I10 Essential (primary) hypertension; E78.00 Pure hypercholesterolemia, unspecified; Z79.02 Long term (current) use of antithrombotics/antiplatelets; Z79.82 Long term (current) use of aspirin; Z79.899 Other long term (current) drug therapy; Z88.5 Allergy status to narcotic agent; Z93.0 Tracheostomy status; Z95.5 Presence of coronary angioplasty implant and graft
CPT/HCPCS: J2405; J2704

== ENCOUNTER → 2022-11-05 | Outpatient (CLI) | payer MEDICARE, MEDICAID | LOC: PET 08:00 | PROVIDERS: ATTEND Otolaryngology | DX: C04.9 Malignant neoplasm of floor of mouth, unspecified (principal) | CPT/HCPCS: 78815; A9552 ==

== ENCOUNTER → 2023-03-04 | Outpatient (CLI) | payer MEDICARE, MEDICAID | LOC: PET 08:00 | PROVIDERS: ATTEND Otolaryngology | DX: Z08 Encounter for follow-up examination after completed treatment for malignant neoplasm (principal); Z85.810 Personal history of malignant neoplasm of tongue; R91.8 Other nonspecific abnormal finding of lung field | CPT/HCPCS: 78815; A9552 ==

== ENCOUNTER 2023-09-13 08:59 | Outpatient (CLI) | payer MEDICARE, MEDICAID | END 2023-09-13 09:00 | disposition home or self-care (01) | LOC: BICRAD 08:59 | PROVIDERS: ATTEND Orthopaedic Surgery | DX: S42.331D Displaced oblique fracture of shaft of humerus, right arm, subsequent encounter for fracture with routine healing (principal) ==

== ENCOUNTER 2023-09-24 07:39 | Outpatient (CLI) | payer MEDICARE, MEDICAID | END 2023-09-24 07:40 | disposition home or self-care (01) | LOC: RAD 07:39 | PROVIDERS: ATTEND Internal Medicine Critical Care Medicine | DX: R06.00 Dyspnea, unspecified (principal); J98.4 Other disorders of lung | CPT/HCPCS: 71046 ==

== ENCOUNTER 2023-10-04 09:43 | Outpatient (CLI) | payer MEDICARE, MEDICAID ==
[2023-10-04 11:42] LABS: Hematocrit 37.6 % (34.9-44.5); Hemoglobin 12.3 g/dL (12.0-15.5); Mean Corpuscular HGB CONC 32.7 g/dL (32.0-36.0); Mean Corpuscular Hemoglobin 27.2 pg (27.0-33.0); Mean Corpuscular Volume 83.2 fl (81.6-98.3); Mean Platelet Volume 11.5 fl (7.4-10.4); Platelet Count 262 10x3/uL (150-450); RBC Distribution Width 15.3 % (11.5-14.5); Red Blood Cell (RBC) Count 4.52 10x6/uL (3.90-5.03); White Blood Cell (WBC) Count 7.1 10x3/uL (3.5-10.5)
[2023-10-04 11:57] LABS: Anion Gap 15 mmol/L (10-20); BUN (Urea Nitrogen) 19 mg/dL (9.8-20.1); Calc. Creatinine Clearance 0 mL/min (70-130); Calcium 9.3 mg/dL (7.8-10.44); Carbon Dioxide 26 mmol/L (23-31); Chloride 94 mmol/L (98-107); Estimated GFR 74; Glucose 110 mg/dL (80-115); Potassium 4.6 mmol/L (3.5-5.1); Sodium 130 mmol/L (136-145)
== END 2023-10-04 09:44 | disposition home or self-care (01) ==
LOC: LABBT 09:43
PROVIDERS: ATTEND Orthopaedic Surgery
DX: Z01.818 Encounter for other preprocedural examination (principal); S42.301A Unspecified fracture of shaft of humerus, right arm, initial encounter for closed fracture
CPT/HCPCS: 80048; 85027; 93005; 93010

== ENCOUNTER 2023-10-06 10:47 | Day surgery (SDC) | payer MEDICARE, MEDICAID ==
[2023-10-05 12:23] VITALS: BMI 17.9
[2023-10-06] MEDS ORDERED: CEFAZOLIN 2 GM VIAL ONE (12:55)
[2023-10-06] MEDS ORDERED: Sodium Chloride 0.9% 100 ML ONE (12:55)
[2023-10-06] MEDS ORDERED: Rocuronium Bromide 10 MG/ML (10ML VIAL) ONE (13:13)
[2023-10-06] MEDS ORDERED: ePHEDrine Sulfate 50 MG/10 ML VIAL ONE (13:13)
[2023-10-06] MEDS ORDERED: Lidocaine 1% PF 5 ML VIAL ONE (13:13)
[2023-10-06] MEDS ORDERED: Calcium Chloride 1 GM/10 ML Abboject SYRINGE ONE ×2 (13:13→15:39)
[2023-10-06] MEDS ORDERED: PHENYLEPHRINE-NS 100 MCG/ML 10 ML SYRINGE ONE ×2 (13:13→15:21)
[2023-10-06] MEDS ORDERED: Ondansetron PF 4 MG/2 ML Vial ONE ×2 (13:13→15:16)
[2023-10-06] MEDS ORDERED: Sodium Bicarb 50 MEQ/50 ML VIAL ONE (15:07)
[2023-10-06] MEDS ORDERED: Vancomycin 1 GM VIAL ONE (15:10)
[2023-10-06] MEDS ORDERED: SUGAMMADEX SODIUM 200 MG/2 ML VIAL ONE (15:16)
[2023-10-06] MEDS ORDERED: EPINEPHrine 1 MG/ML VIAL ONE (15:24)
[2023-10-06] MEDS ORDERED: Bupivacaine PF 0.5% 30 ML VIAL ONE (15:25)
[2023-10-06] MEDS ORDERED: Dexamethasone 20 MG/5 ML VIAL ONE (15:48)
[2023-10-06] MEDS ORDERED: Vasopressin 20 UNITS/ML VIAL ONE (16:14)
[2023-10-06] MEDS ORDERED: HYDROcodone/Acetaminophen 5/325 mg Tablet ONE (17:13)
== END 2023-10-06 18:00 | disposition home or self-care (01) ==
LOC: SDC 10:47
PROVIDERS: ATTEND Orthopaedic Surgery
PROC: 0PSF04Z Reposition Right Humeral Shaft with Internal Fixation Device, Open Approach (ICD-10-PCS; principal; 2023-10-06)
PROC: 3E0V0GB Introduction of Recombinant Bone Morphogenetic Protein into Bones, Open Approach (ICD-10-PCS; 2023-10-06)
DX: S42.301K Unspecified fracture of shaft of humerus, right arm, subsequent encounter for fracture with nonunion (principal); I25.10 Atherosclerotic heart disease of native coronary artery without angina pectoris; J44.9 Chronic obstructive pulmonary disease, unspecified; E11.9 Type 2 diabetes mellitus without complications; I10 Essential (primary) hypertension; E78.00 Pure hypercholesterolemia, unspecified; F41.9 Anxiety disorder, unspecified; Z87.891 Personal history of nicotine dependence; Z95.5 Presence of coronary angioplasty implant and graft; Z90.710 Acquired absence of both cervix and uterus; Z79.899 Other long term (current) drug therapy; Z88.5 Allergy status to narcotic agent; Z88.8 Allergy status to other drugs, medicaments and biological substances; Z79.82 Long term (current) use of aspirin; X58.XXXD Exposure to other specified factors, subsequent encounter
CPT/HCPCS: 24435; 73060; C1713 ×7; J0171; J1100; J2250; J2405; J3370; J3490; S0020

== ENCOUNTER 2023-11-04 08:00 | Outpatient (CLI) | payer MEDICARE, MEDICAID | END 2023-11-04 08:01 | disposition home or self-care (01) | LOC: PET 08:00 | PROVIDERS: ATTEND Otolaryngology | DX: C10.3 Malignant neoplasm of posterior wall of oropharynx (principal) | CPT/HCPCS: 78815; A9552 ==